=== PATIENT | female | born 1995 ===

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

== ENCOUNTER 2017-12-12 12:46 | Emergency (ER) | payer OTHER ==
[2017-12-12 12:48] VITALS: BMI 21.2
[2017-12-12 13:07] VITALS: BP 113/73; PULSE 66; RESP 18; TEMP 98.6; O2SAT 100
--- NOTE | 2017-12-12 13:20 | ED PDOC ---
HPI: Skin/Bite Injury Time Seen by Provider: 12/12/17 13:18 Chief Complaint (Nursing): Abnormal Skin Integrity Chief Complaint (Provider): Rash History Per: Patient History/Exam Limitations: no limitations Onset/Duration Of Symptoms: Intermittent Episodes (for a few weeks) Current Symptoms Are (Timing): Still Present Additional Complaint(s): 21 year old female presents to the ED for evaluation of an intermittent red, blotchy rash for a few weeks. Patient states it initially began in her right axilla but went away after using cortisone cream. When it returned, it was worsening along her lower extremities and medial aspect of her thighs. Denies fever and chills. Recent travel: [place] in October PMD: none provided Past Medical History Reviewed: Historical Data, Nursing Documentation, Vital Signs Vital Signs: Last Vital Signs Temp 98.6 F 12/12/17 13:03 Pulse 66 12/12/17 13:03 Resp 18 12/12/17 13:03 BP 113/73 12/12/17 13:03 Pulse Ox 100 12/12/17 13:29 - Medical History PMH: No Chronic Diseases - Surgical History Surgical History: No Surg Hx - Family History Family History: States: Unknown Family Hx - Home Medications Home Medications: Ambulatory Orders Medication Instructions Recorded Cyclobenzaprine [Cyclobenzaprine 10 mg PO Q8 PRN #30 tab 03/17/16 HCl] Naproxen [Naprosyn] 500 mg PO BID PRN #30 tab 03/17/16 Ciprofloxacin HCl [Cipro] 500 mg PO BID #20 tab 09/18/16 DiphenhydrAMINE [Benadryl] 50 mg PO Q6 #20 cap 09/18/16 Clotrimazole/Betamethasone 15 gm EXT BID #1 tube 12/12/17 [Lotrisone] - Allergies Allergies/Adverse Reactions: Allergies Allergy/AdvReac Type Severity Reaction Status Date / Time No Known Allergies Allergy Verified 12/12/17 13:03 Review of Systems ROS Statement: Except As Marked, All Systems Reviewed And Found Negative Constitutional: Negative for: Fever, Chills Skin: Positive for: Rash (red blotches to bilat LE) Physical Exam - Reviewed Nursing Documentation Reviewed: Yes Vital Signs Reviewed: Yes - Physical Exam Appears: Positive for: No Acute Distress Head Exam: Positive for: ATRAUMATIC, NORMOCEPHALIC Skin: Positive for: Rash (small 1cm in diameter scaly region of skin noted to LE ; multiple, scaly, various sized patches also noted to medial thighs and left gluteal region ) Eye Exam: Positive for: Normal appearance Cardiovascular/Chest: Positive for: Regular Rate, Rhythm Respiratory: Positive for: Normal Breath Sounds. Negative for: Respiratory Distress Extremity: Positive for: Normal ROM Neurologic/Psych: Positive for: Alert, Oriented (x3) - ECG O2 Sat by Pulse Oximetry: 100 (RA) Pulse Ox Interpretation: Normal Medical Decision Making Medical Decision Making: Time: 1317 Initial Impression: dacia chang Initial Plan: --Patient requires no further ED care at this time. She will be sent with a dermatology referral and prescription. Scribe Attestation: Documented by Hazel Palafox, acting as a scribe for Khadar Celaya PA-C. Provider Scribe Attestation: All medical record entries made by the Scribe were at my direction and personally dictated by me. I have reviewed the chart and agree that the record accurately reflects my personal performance of the history, physical exam, medical decision making, and the department course for this patient. I have also personally directed, reviewed, and agree with the discharge instructions and disposition. Disposition - Clinical Impression Clinical Impression: Tinea versicolor - Patient ED Disposition Is Patient to be Admitted: No - Disposition Referrals: Xander Perez MD [Staff Provider] - Disposition: Routine/Home Disposition Time: 13:54 Condition: FAIR Additional Instructions: IF SYMPTOMS DO NOT RESOLVE AFTER 1-2 WEEK OF TREATMENT, CAN TRY SELSUN BLUE APPLY TOPICALLY 15 MINUTES DAILY X 1 WEEK Prescriptions: Clotrimazole/Betamethasone [Lotrisone] 15 gm EXT BID #1 tube Instructions: Tinea Versicolor Forms: [facility] ED School/Work Excuse
== END 2017-12-12 13:54 | disposition home or self-care (01) ==
LOC: H.ER 12:46
DX: B36.0 Pityriasis versicolor (principal)

== ENCOUNTER 2018-01-16 19:41 | Emergency (ER) | payer OTHER ==
[2018-01-16 19:41] VITALS: BMI 21.2
[2018-01-16 19:48] VITALS: BP 106/72; PULSE 89; RESP 16; TEMP 98.2; O2SAT 98
--- NOTE | 2018-01-16 20:30 | ED PDOC ---
HPI: CCC, URI, Sore Throat Time Seen by Provider: 01/16/18 19:52 Chief Complaint (Nursing): Cough, Cold, Congestion Chief Complaint (Provider): Cough, Cold, Congestion History Per: Patient History/Exam Limitations: no limitations Onset/Duration Of Symptoms: Days (x1) Location Of Pain: Headache Associated Symptoms: Nasal Congestion. denies: Sore Throat Additional Complaint(s): Sherie Salvador is a 22 year old female with no past history who is presenting to the ED for evaluation of cold associated with stuffy nose onset yesterday. Patient states that yesterday she lost her voice and has had mild headaches. She reports that last time she was sick like this she was diagnosed with laryngitis and she wanted to make sure she doesnt have that now. Patient denies any pain and offers no other medical complaints. PMD: none provided Past Medical History Reviewed: Historical Data, Nursing Documentation, Vital Signs Vital Signs: Last Vital Signs Temp 98.2 F 01/16/18 19:45 Pulse 89 01/16/18 19:45 Resp 16 01/16/18 19:45 BP 106/72 01/16/18 19:45 Pulse Ox 98 01/16/18 19:45 - Medical History PMH: No Chronic Diseases - Surgical History Surgical History: No Surg Hx - Family History Family History: States: Unknown Family Hx - Social History Current smoker - smoking cessation education provided: No Alcohol: None Drugs: Denies - Home Medications Home Medications: Ambulatory Orders Medication Instructions Recorded Cyclobenzaprine [Cyclobenzaprine 10 mg PO Q8 PRN #30 tab 03/17/16 HCl] Naproxen [Naprosyn] 500 mg PO BID PRN #30 tab 03/17/16 Ciprofloxacin HCl [Cipro] 500 mg PO BID #20 tab 09/18/16 DiphenhydrAMINE [Benadryl] 50 mg PO Q6 #20 cap 09/18/16 Clotrimazole/Betamethasone 15 gm EXT BID #1 tube 12/12/17 [Lotrisone] predniSONE [predniSONE Tab] 20 mg PO DAILY #12 tab 01/16/18 - Allergies Allergies/Adverse Reactions: Allergies Allergy/AdvReac Type Severity Reaction Status Date / Time No Known Allergies Allergy Verified 12/12/17 13:03 Review of Systems ROS Statement: Except As Marked, All Systems Reviewed And Found Negative ENT: Positive for: Nose Congestion Respiratory: Positive for: Other (lost her voice) Neurological: Positive for: Headache Physical Exam - Reviewed Nursing Documentation Reviewed: Yes Vital Signs Reviewed: Yes - Physical Exam Appears: Positive for: Well, Non-toxic, No Acute Distress Head Exam: Positive for: ATRAUMATIC, NORMAL INSPECTION, NORMOCEPHALIC ENT: Positive for: Normal ENT Inspection Cardiovascular/Chest: Positive for: Regular Rate, Rhythm Respiratory: Positive for: Normal Breath Sounds, Other (hoarse voice). Negative for: Respiratory Distress Neurologic/Psych: Positive for: Alert, Oriented. Negative for: Motor/Sensory Deficits - ECG O2 Sat by Pulse Oximetry: 98 (RA) Pulse Ox Interpretation: Normal Medical Decision Making Medical Decision Making: Time: 20:00 Upon provider evaluation patient is medically stable, and requires no further treatment in the ED at this time. Patient will be discharged home. Counseling was provided and all questions were answered regarding diagnosis and need for follow up with PMD. There is agreement to discharge plan. Return if symptoms persist or worsen. Scribe Attestation: Documented by Radha Dickerson, acting as a scribe for Destinee Price PA-C. Provider Scribe Attestation: All medical record entries made by the Scribe were at my direction and personally dictated by me. I have reviewed the chart and agree that the record accurately reflects my personal performance of the history, physical exam, medical decision making, and the department course for this patient. I have also personally directed, reviewed, and agree with the discharge instructions and disposition. Disposition - Clinical Impression Clinical Impression: Laryngitis - Patient ED Disposition Is Patient to be Admitted: No Counseled Patient/Family Regarding: Diagnosis, Need For Followup, Rx Given - Disposition Disposition: Routine/Home Disposition Time: 20:29 Condition: GOOD Prescriptions: predniSONE [predniSONE Tab] 20 mg PO DAILY #12 tab Instructions: Laryngitis Forms: [employer] (Kazakh)
== END 2018-01-16 20:40 | disposition home or self-care (01) ==
LOC: H.ER 19:41
DX: J04.0 Acute laryngitis (principal)

== ENCOUNTER 2018-07-20 13:03 | Emergency (ER) | payer OTHER ==
[2018-07-20 13:03] VITALS: BMI 21.2
[2018-07-20] MEDS ORDERED: Sodium Chloride 0.9% 1,000 ML IV STA (14:46)
--- NOTE | 2018-07-20 14:55 | ED PDOC ---
HPI: Abdomen Time Seen by Provider: 07/20/18 14:13 Chief Complaint (Nursing): Abdominal Pain Chief Complaint (Provider): Abdominal pain History Per: Patient History/Exam Limitations: no limitations Additional Complaint(s): 22yo female, presents to ER for evaluation of abdominal pain. Patient states she developed the symptoms after returning from a vacation in [facility], states she was there for 16 days and currently reports nausea, vomiting and diarrhea as well. No fever, chills, or other complaints. Patient took milk of magnesia with no relief. PMD: None Past Medical History Reviewed: Historical Data, Nursing Documentation, Vital Signs Vital Signs: Last Vital Signs Temp 98.4 F 07/20/18 13:22 Pulse 114 H 07/20/18 13:22 Resp 18 07/20/18 13:22 BP 109/63 07/20/18 13:22 Pulse Ox 97 07/20/18 13:22 Primary Care Provider: FAMILY PROVIDER,NO - Medical History PMH: No Chronic Diseases - Surgical History Other surgeries: rhinoplasty - Family History Family History: States: Unknown Family Hx - Home Medications Home Medications: Ambulatory Orders Medication Instructions Recorded Cyclobenzaprine [Cyclobenzaprine 10 mg PO Q8 PRN #30 tab 03/17/16 HCl] Naproxen [Naprosyn] 500 mg PO BID PRN #30 tab 03/17/16 Ciprofloxacin HCl [Cipro] 500 mg PO BID #20 tab 09/18/16 DiphenhydrAMINE [Benadryl] 50 mg PO Q6 #20 cap 09/18/16 Clotrimazole/Betamethasone 15 gm EXT BID #1 tube 12/12/17 [Lotrisone] predniSONE [predniSONE Tab] 20 mg PO DAILY #12 tab 01/16/18 Ondansetron ODT [Zofran ODT] 1 odt PO Q6 PRN #20 odt 07/20/18 Saccharomyces Boulardi [Florastor] 500 mg PO BID #28 cap 07/20/18 - Allergies Allergies/Adverse Reactions: Allergies Allergy/AdvReac Type Severity Reaction Status Date / Time No Known Allergies Allergy Verified 07/20/18 13:21 Review of Systems ROS Statement: Except As Marked, All Systems Reviewed And Found Negative Constitutional: Negative for: Fever, Chills Gastrointestinal: Positive for: Nausea, Vomiting, Abdominal Pain, Diarrhea Physical Exam - Reviewed Nursing Documentation Reviewed: Yes Vital Signs Reviewed: Yes - Physical Exam Appears: Positive for: No Acute Distress Head Exam: Positive for: ATRAUMATIC, NORMAL INSPECTION, NORMOCEPHALIC Skin: Positive for: Normal Color Eye Exam: Positive for: Normal appearance, EOMI, PERRL Neck: Positive for: Supple Cardiovascular/Chest: Positive for: Regular Rate, Rhythm Respiratory: Positive for: Normal Breath Sounds. Negative for: Respiratory Distress Gastrointestinal/Abdominal: Positive for: Soft, Tenderness (epigastric). Negative for: Guarding, Rebound Back: Positive for: Normal Inspection Extremity: Positive for: Normal ROM Neurological/Psych: Positive for: Awake, Alert, Normal Tone - Laboratory Results Result Diagrams: 07/20/18 15:11 07/20/18 15:11 - ECG O2 Sat by Pulse Oximetry: 97 (RA) Pulse Ox Interpretation: Normal Medical Decision Making Medical Decision Making: Impression: Abdominal pain in setting of recent foreign travel Plan: -- Labs -- UA -- IV FLuids -- Zofran 4mg IV -- US Abdomen 1600 Patient resting comfortably Patient to be signed out to Dr. Pinon pending US results, reassessment, final disposition. ScribeAttestation: Documented byMai Aguayo, acting as a scribe for Christina Mane MD. Provider ScribeAttestation: All medical record entries made by the Scribe were at my direction and personally dictated by me. I have reviewed the chart and agree that the record accurately reflects my personal performance of the history, physical exam, medical decision making, and the department course for this patient. I have also personally directed, reviewed, and agree with the discharge instructions and disposition. Disposition - Clinical Impression Clinical Impression: Abdominal pain, Gastroenteritis - Patient ED Disposition Is Patient to be Admitted: Transfer of Care - Disposition Referrals: Viviane,Glenda C, MD [Family Provider] - (FOLLOWUP WITH YOUR DOCTOR IN 2-3 DAYS TO SEE HOW YOU ARE DOING.) Disposition: Transfer of Care Disposition Time: 16:01 Condition: STABLE Prescriptions: Ondansetron ODT [Zofran ODT] 1 odt PO Q6 PRN #20 odt PRN Reason: Nausea/Vomiting Saccharomyces Boulardi [Florastor] 500 mg PO BID #28 cap Instructions: Diarrhea and Traveler's Diarrhea, Adult (DC), Acute Abdomen (Belly Pain), Adult (DC) Forms: [facility] ED School/Work Excuse Patient Signed Over To: Jaclyn Pinon
[2018-07-20 15:20] LABS: BASO % 0.3 % (0.0-2.0); HEMOGLOBIN 14.6 g/dL (12.0-16.0); LYMPH # 0.4 K/uL (1.0-4.3); MEAN CELL VOLUME 89.7 fl (81.0-99.0); MEAN CORPUSCULAR HEMOGLOBIN 31.1 pg (27.0-31.0); MEAN CORPUSCULAR HGB CONC 34.6 g/dL (33.0-37.0); MONO # 0.6 K/uL (0.0-0.8); MONO % 5.8 % (0.0-10.0); NEUT # 9.3 K/uL (1.8-7.0); NEUT % 89.9 % (50.0-75.0); PLATELET COUNT 281 K/uL (130-400); RED CELL DISTRIBUTION WIDTH 11.9 % (11.5-14.5); WHITE BLOOD COUNT 10.4 K/uL (4.8-10.8)
[2018-07-20 15:29] LABS: ALB/GLOB RATIO 1.5 (1.0-2.1); ALBUMIN 4.6 g/dL (3.5-5.0); ALT/SGPT 32 U/L (9-52); AST/SGOT 31 U/L (14-36); BLOOD UREA NITROGEN 13 mg/dl (7-17); CALCIUM 9.2 mg/dL (8.4-10.2); GFR NON-AFRICAN AMERICAN > 60; LIPASE 77 U/L (23-300)
[2018-07-20 15:57] LABS: LYMPHOCYTE 6 % (20-50); MONOCYTE 6 % (0-10); NEUTROPHIL 88 % (42-75); TOTAL CELLS COUNTED 100
[2018-07-20 15:58] LABS: PLATELET ESTIMATE NORMAL (NORMAL)
--- NOTE | 2018-07-20 16:20 | ED PDOC ---
- Laboratory Results Result Diagrams: 07/20/18 15:11 07/20/18 15:11 Lab Results: Total Bilirubin 1.0 mg/dl (0.2-1.3) 07/20/18 15:11 AST 31 U/L (14-36) 07/20/18 15:11 ALT 32 U/L (9-52) 07/20/18 15:11 Alkaline Phosphatase 82 U/L (38-126) 07/20/18 15:11 Total Protein 7.7 G/DL (6.3-8.2) 07/20/18 15:11 Albumin 4.6 g/dL (3.5-5.0) 07/20/18 15:11 Globulin 3.1 gm/dL (2.2-3.9) 07/20/18 15:11 Albumin/Globulin Ratio 1.5 (1.0-2.1) 07/20/18 15:11 Lipase 77 U/L (23-300) 07/20/18 15:11 - ECG O2 Sat by Pulse Oximetry: 97 (RA) Pulse Ox Interpretation: Normal Medical Decision Making Medical Decision Makin Patient signed out to me by Dr. Mane pending US abdomen, reassessment. [id number] Accession No. : [id number] Patient Name / ID : TABITHA LARKIN / [id number] Exam Date : 07/20/2018 15:43:09 ( Approved ) Study Comment : Sex / Age : F / 22Y Creator : Curt Marino MD Dictator : Curt Marino MD Mechanical Engineering Manager : Dining Car Conductor : Curt Marino MD Approver2 : Report Date : 07/20/2018 16:21:48 My Comment : Date of service: 07/20/2018 HISTORY: Epigastric pain, v/d COMPARISON: None. TECHNIQUE: Sonographic evaluation of the right upper quadrant of the abdomen. FINDINGS: LIVER: Measures 14.4 cm in length. Normal echogenicity of the liver parenchyma. No mass. No intrahepatic bile duct dilatation. GALLBLADDER: Unremarkable. No gallstones. COMMON BILE DUCT: Measures 3 mm. No stones. No dilatation. PANCREAS: Unremarkable as visualized. No mass. No ductal dilatation. RIGHT KIDNEY: Measures 10.1 cm in length. Normal echogenicity. No calculus, mass, or hydronephrosis. AORTA: No aneurysmal dilatation. IVC: Unremarkable. OTHER FINDINGS: None . IMPRESSION: Unremarkable examination. No evidence of cholelithiasis or cholecystitis. lLabs reviewed and unremarkable Pt feeling better DW pt findings and plan of care. Return parameters discussed. Stable for discharge. - ScribeAttestation: Documented byMai Aguayo, acting as a scribe for Jaclyn Pinon MD. Provider ScribeAttestation: All medical record entries made by the Scribe were at my direction and perso pamela dictated by me. I have reviewed the chart and agree that the record accurately reflects my personal performance of the history, physical exam, medical decision making, and the department course for this patient. I have also personally directed, reviewed, and agree with the discharge instructions and disposition. Disposition - Clinical Impression Clinical Impression: Abdominal pain, Gastroenteritis - POA Present On Arrival: None - Disposition Referrals: Glenda Pan MD [Family Provider] - (FOLLOWUP WITH YOUR DOCTOR IN 2-3 DAYS TO SEE HOW YOU ARE DOING.) Disposition: Routine/Home Disposition Time: 17:09 Condition: STABLE Prescriptions: Ondansetron ODT [Zofran ODT] 1 odt PO Q6 PRN #20 odt PRN Reason: Nausea/Vomiting Saccharomyces Boulardi [Florastor] 500 mg PO BID #28 cap Instructions: Acute Abdomen (Belly Pain), Adult (DC), Diarrhea and Traveler's Diarrhea, Adult (DC) Forms: [facility] ED School/Work Excuse
--- NOTE | 2018-07-20 16:25 | US ---
Date of service: 07/20/2018 HISTORY: Epigastric pain, v/d COMPARISON: None. TECHNIQUE: Sonographic evaluation of the right upper quadrant of the abdomen. FINDINGS: LIVER: Measures 14.4 cm in length. Normal echogenicity of the liver parenchyma. No mass. No intrahepatic bile duct dilatation. GALLBLADDER: Unremarkable. No gallstones. COMMON BILE DUCT: Measures 3 mm. No stones. No dilatation. PANCREAS: Unremarkable as visualized. No mass. No ductal dilatation. RIGHT KIDNEY: Measures 10.1 cm in length. Normal echogenicity. No calculus, mass, or hydronephrosis. AORTA: No aneurysmal dilatation. IVC: Unremarkable. OTHER FINDINGS: None . IMPRESSION: Unremarkable examination. No evidence of cholelithiasis or cholecystitis.
[2018-07-20 18:08] VITALS: BP 104/68; PULSE 99; RESP 17; TEMP 99.6
[2018-07-26 08:18] VITALS: O2SAT 97
== END 2018-07-20 18:15 | disposition home or self-care (01) ==
LOC: H.ER 13:03
DX: K52.9 Noninfective gastroenteritis and colitis, unspecified (principal); R10.9 Unspecified abdominal pain
CPT/HCPCS: 76705; 80053; 81025; 83690; 85025; 96374; 99285; J2405; J7030